=== PATIENT | female | born 1960 | race Two or more races ===

== ENCOUNTER 2017-03-31 07:03 | Emergency (ER) | payer SELFPAY ==
[~2017-03-31] VITALS: Ht 170.2 cm; Wt 81.6 kg
--- NOTE | 2017-03-31 07:25 | NUR ---
PATIENT BIB [facility] C/O PASSING OUT AFTER WALKING TO BATHROOM. PATIENT HAD POSSIBLE SYNCOPAL EPISODE. SMALL HEMATOMA PRESENT ON BACK OF HEAD. PATIENT IS CURRENTLY A/O X 4. BREATHING EVEN AND UNLABORED, NO SOB, NO DISTRESS. PATIENTS VITALS REMAIN STABLE. SAFETY AND COMFORT MEASURES IN PLACE. AWAITING MD ORDERS.
--- NOTE | 2017-03-31 07:44 | NUR ---
PATIENT TAKEN TO CT VIA STRETCHER.
--- NOTE | 2017-03-31 07:56 | NUR ---
PATIENT RETURNED FROM CT SCAN IN STABLE CONDITION.
[2017-03-31 08:00] LABS: BASOPHILS % (AUTO) 0.5 % (0.0-2.0); EOSINOPHILS % (AUTO) 0.8 % (0.0-6.0); HEMATOCRIT 39 % (33-45); HEMOGLOBIN 12.9 g/dL (11.5-14.8); LYMPHOCYTES # (AUTO) 1.6 /CMM (0.8-4.8); LYMPHOCYTES % (AUTO) 34.5 % (20.0-44.0); MEAN CORPUSCULAR HEMOGLOBIN 28 PG (26.0-33.0); MEAN CORPUSCULAR HGB CONC 34 g/dl (31.0-36.0); MEAN CORPUSCULAR VOLUME 84 fL (82-100); MONOCYTES # (AUTO) 0.3 /CMM (0.1-1.30); MONOCYTES % (AUTO) 6.5 % (2.0-12.0); NEUTROPHILS # (AUTO) 2.6 /CMM (1.8-8.9); NEUTROPHILS % (AUTO) 57.7 % (43.0-81.0); PLATELET COUNT (AUTO) 225 /CMM (150-450); RDW COEFFICIENT OF VARIATION 12.8 (11.5-15.0); RED BLOOD CELL COUNT(AUTO) 4.59 MIL/uL (4.0-5.2); WHITE BLOOD COUNT (AUTO) 4.6 K/uL (4.3-11.0)
[2017-03-31] MEDS ORDERED: ACETAMINOPHEN ES 500 MG TABLET PO ONE (08:00)
[2017-03-31] MEDS ORDERED: ACETAMINOPHEN ES 500 MG TABLET ONE (08:00)
[2017-03-31 08:01] LABS: CALCIUM, SERUM 8.9 mg/dL (8.5-10.1); CREATININE 0.7 mg/dL (0.6-1.3)
[2017-03-31 08:07] LABS: ALBUMIN 3.8 g/dL (3.4-5.0); BILIRUBIN,DIRECT 0.1 mg/dL (0.0-0.2); BILIRUBIN,TOTAL 0.3 mg/dL (0.2-1.0); TOTAL PROTEIN, SERUM 7.4 g/dL (6.4-8.2)
--- NOTE | 2017-03-31 08:40 | NUR ---
PATIENT AMBULATING WITH EMT, NO COMPLICATIONS NOTED.
[2017-03-31 08:54] VITALS: BP 124/72
--- NOTE | 2017-03-31 08:55 | NUR ---
Patient cleared for discharge per MD. Excuse for work note given to patient. Patient discharged to home in stable condition. Written and verbal after care instructions given. Patient verbalizes understanding of instruction.
== END 2017-03-31 08:55 | disposition home or self-care (01) ==
LOC: ER 07:04
DX: S00.01XA Abrasion of scalp, initial encounter (principal); R55 Syncope and collapse; E11.9 Type 2 diabetes mellitus without complications; W01.198A Fall on same level from slipping, tripping and stumbling with subsequent striking against other object, initial encounter; Y93.89 Activity, other specified; Y92.89 Other specified places as the place of occurrence of the external cause; Y99.9 Unspecified external cause status
CPT/HCPCS: 36415; 70450; 80048; 80076; 85025; 93005; 99285; A4606; Z7610